=== PATIENT | female | born 1975 | race Caucasian/White ===

== ENCOUNTER 2021-04-26 12:57 | Emergency (ER) | payer BC ==
[~2021-04-26] VITALS: Ht 157.5 cm; Wt 77.3 kg
[2021-04-26 13:00] VITALS: BP 156/80
[2021-04-26] MEDS ORDERED: ondansetron 4mg rapidly disintigrating tab PO ONE (13:30)
[2021-04-26] MEDS ORDERED: HYDROcodone/acetaminophen 10/325mg tab PO ONE (13:30)
[2021-04-26] MEDS ORDERED: ONDA4TAB6 PO (13:32)
[2021-04-26] MEDS ORDERED: HYDR-3972 PO (13:32)
== END 2021-04-26 14:18 | disposition home or self-care (01) ==
LOC: ER 12:58
DX: S82.55XA Nondisplaced fracture of medial malleolus of left tibia, initial encounter for closed fracture (principal); S82.65XA Nondisplaced fracture of lateral malleolus of left fibula, initial encounter for closed fracture; S93.402A Sprain of unspecified ligament of left ankle, initial encounter; S63.601A Unspecified sprain of right thumb, initial encounter; V89.9XXA Person injured in unspecified vehicle accident, initial encounter; Y93.89 Activity, other specified; Y92.89 Other specified places as the place of occurrence of the external cause; Y99.8 Other external cause status
CPT/HCPCS: 29130; 29515; 73140; 73610; 99284